=== PATIENT | male | born 1970 | race Caucasian/White ===

== ENCOUNTER → 2018-10-01 | Outpatient (CLI) | payer OTHER ==
--- NOTE | 2018-10-01 17:08 | REP ---
LEFT RIB SERIES: Four views of the left ribs were performed. There are mildly displaced fractures of the left 5th through 8th ribs. The left 5th rib is fractured in 2 places. There is no pneumothorax on the accompanying view of the chest. There are bibasilar band like opacities in the lung most consistent with atelectasis in the lung bases. IMPRESSION: Fractures of left 5th through 8th ribs as discussed above. No pneumothorax. There appear to be bibasilar atelectatic changes. Electronically Signed by Jey Anderson MD 10/01/2018 11:50 P
== END ==
LOC: M ADAMS 15:56
PROVIDERS: ATTEND Physician Assistant
DX: S22.42XA Multiple fractures of ribs, left side, initial encounter for closed fracture (principal); X58.XXXA Exposure to other specified factors, initial encounter; Y92.9 Unspecified place or not applicable